=== PATIENT | female | born 1975 | race Caucasian/White ===

== ENCOUNTER 2019-05-16 11:33 | Inpatient (IN) ==
[2019-05-16] MEDS ORDERED: PHENERGAN WITH CODEINE LIQUID PO PRN (12:58)
[2019-05-16 13:59] LABS: HEMATOCRIT 43.9 % (37.0-47.0); HEMOGLOBIN 13.8 g/dL (12.0-16.0); MCH 28.2 PG (27-31); MCHC 31.4 g/dL (33-37); MCV 89.6 FL (81-99); MPV 9.9 FL (7.4-10.4); RBC 4.9 XMIL (4.2-5.4); RDW 13.4 % (11.5-14.5); WBC 16.31 X1000 (4.8-10.8)
[2019-05-16 14:37] LABS: ALB/GLOB RATIO 0.9; ALBUMIN 3.4 g/dL (3.5-5.0); POTASSIUM 3.4 mmol/L (3.5-5.1); TOTAL BILIRUBIN 0.16 mg/dL (0.20-1.00)
[2019-05-16] MEDS: DUONEB (A & A) INH SCH ×2 (15:36→22:26)
[2019-05-16] MEDS: LEVAQUIN 750 MG/D5W 750 MG/150 ML IVPB IV SCH (15:58)
[2019-05-16] MEDS: SOLU-MEDROL IV SCH ×2 (15:58→23:46)
[2019-05-17] MEDS: DUONEB (A & A) INH SCH ×4 (03:54→22:23)
--- NOTE | 2019-05-17 07:23 | EKG Report ---
Test Performed on : 05/17/2019 06:48:53 AM Test Reason : PNEUMONIA Blood Pressure : / mmHG Vent. Rate : 082 BPM Atrial Rate : 082 BPM P-R Int : 116 ms QRS Dur : 092 ms QT Int : 384 ms P-R-T Axes : 046 006 017 degrees QTc Int : 448 ms Normal sinus rhythm. Normal ECG When compared with ECG of 04-MAY-2019 04:52, (Unconfirmed) No significant change was found Confirmed by Jose Potter MD ([id number]) on 05/17/2019 8:11:01 PM
--- NOTE | 2019-05-17 07:43 | Diag Imaging Result Doc PS360 ---
EXAM: CHEST-1 VIEW INDICATION: PNEUMONIA TECHNIQUE: One view COMPARISON: 05/04/2019 FINDINGS: There is a platelike opacity at the left lower lung zone that probably represents atelectasis. It is more dense than the previous study. The right lung is clear. Cardiac silhouette is stable. IMPRESSION: Increase in density of a platelike opacity at the left lung base that probably represents atelectasis. Electronically signed by Delonte Stahl 05/17/2019 7:40 AM
[2019-05-17] MEDS: SOLU-MEDROL IV SCH ×2 (08:39→13:58)
--- NOTE | 2019-05-17 09:20 | PROGRESS NOTE ---
DATE: 05/17/2019 SUBJECTIVE: Ms. Baxter is admitted with non-improving pneumonia on the left side. She has subsegmental atelectasis. Her white count is 16.31. She has been a heavy smoker. Potassium is 3.4. We will use her supplemental potassium. She has been on IV Levaquin as well as steroid therapy. She is also getting the nebulizer treatment. She is feeling somewhat better this morning. -6 cc: Jignesh Cole MD
--- NOTE | 2019-05-17 09:26 | HISTORY AND PHYSICAL ---
HISTORY OF PRESENT ILLNESS: Ms. Baxter, who is a 44-year-old white female, comes to the office with persistent shortness of breath, cough, and low-grade fever. She was seen earlier at [facility] [place] and was told that she had pneumonia bilaterally with some atelectasis on the left side. She had some pulmonary congestion on both sides and it has been decided to admit her to the hospital as she was not improving. She is a nurse by profession. She has been a chronic smoker since early teenage. Does not drink. ALLERGIES: She is allergic to latex. PAST MEDICAL HISTORY: She has past history of one C section and hysterectomy. She is obese. Earlier, there was about 6 months to a year ago, she was trying to get approved for gastric bypass surgery, however, it did not work out with her insurance. She has problems with hypertension. REVIEW OF SYSTEMS: Other than low-grade fever, she has cough with expectoration, Other details are noncontributory. She has not been exposed to anyone who is out of the country. She has not gone out of [place]. PHYSICAL EXAMINATION: GENERAL: The patient is alert and oriented. VITAL SIGNS: Reveal temperature normal, pulse is 91 per minute, respiratory rate 19 per minute, blood pressure was 107/64. HEENT: Head normocephalic. PERRLA. Fundus examination normal. ENT examination unremarkable. NECK: Supple. JVP normal. There is no evidence of lymphadenopathy, thyroid enlargement. EXTREMITIES: No pedal edema, calf tenderness, any cyanosis or cyanosis or clubbing. Pedal pulses well felt. BREASTS: Not done. CHEST: Normal inspection. LUNGS: Clear on auscultation. PMI in the normal position. Her lungs reveals some basal rales at both bases. No wheezing audible at present time. HEART: Heart sounds normal. No murmur, gallop or rub noted. ABDOMEN: Obese. Hernial orifices normal. No guarding, rigidity, free fluid, masses, or organomegaly. Bowel sounds normal. RECTAL: Deferred. PHOTOENGRAVING ETCHER: Higher functions normal. Cranial nerves normal. Motor and sensory system examination unremarkable. Deep tendon reflexes normal. Plantars downgoing. Skull and spine examination normal. No cerebellar signs of meningeal irritation, local motor exam. SKIN: Unremarkable. CLINICAL IMPRESSION: 1. Pneumonia, especially on the left side. 2. History of smoking. 3. Hypertension. 4. Obesity. PLAN: Start IV antibiotics and respiratory therapy as well as some steroid therapy. cc: Jignesh Cole MD MTDD
[2019-05-17] MEDS: SINGULAIR PO SCH (09:52)
[2019-05-17] MEDS: HYDROCHLOROTHIAZIDE PO SCH (09:52)
[2019-05-17] MEDS: COZAAR PO SCH (09:53)
[2019-05-17] MEDS: BREO ELLIPTA 100/25 MCG INH INH SCH (10:03)
[2019-05-17] MEDS: LEVAQUIN 750 MG/D5W 750 MG/150 ML IVPB IV SCH (13:58)
[2019-05-17] MEDS: KLOR-CON PO SCH (20:18)
[2019-05-18] MEDS: SOLU-MEDROL IV SCH ×2 (01:24→15:48)
[2019-05-18] MEDS: DUONEB (A & A) INH SCH ×2 (03:28→20:06)
--- NOTE | 2019-05-18 09:16 | PROGRESS NOTE ---
DATE: 05/18/2019 Ms. Baxter is feeling better. Laryngitis is significantly improved. The voice is back to normal. She has minimal congestion on the left base. She has atelectasis. She has been treated with IV Levaquin. If the x-ray is better tomorrow, I may discharge her. However, she wants the coronavirus test done and she has pneumonia and history of respiratory illness. I personally feel like it is in order. If it is not done ,she would be quarrantined for 14 days, which she does not like and she wants to know. We will order it today. cc: Jignesh Cole MD MTDD
[2019-05-18] MEDS: SINGULAIR PO SCH (12:01)
[2019-05-18] MEDS: HYDROCHLOROTHIAZIDE PO SCH (12:01)
[2019-05-18] MEDS: KLOR-CON PO SCH (12:01)
[2019-05-18] MEDS: COZAAR PO SCH (12:01)
[2019-05-18] MEDS: LEVAQUIN 750 MG/D5W 750 MG/150 ML IVPB IV SCH (15:48)
[2019-05-18] MEDS ORDERED: COMBIVENT RESPIMAT INHALER ONE (16:43)
[2019-05-18] MEDS: COMBIVENT RESPIMAT INHALER INH SCH ×2 (16:51→22:00)
[2019-05-18] MEDS: BREO ELLIPTA 100/25 MCG INH INH SCH (16:51)
[2019-05-19] MEDS: COMBIVENT RESPIMAT INHALER INH SCH ×3 (04:05→22:00)
[2019-05-19] MEDS: SOLU-MEDROL IV SCH ×2 (04:53→16:25)
[2019-05-19] MEDS: KLOR-CON PO SCH ×3 (07:04→21:50)
--- NOTE | 2019-05-19 11:27 | Diag Imaging Result Doc PS360 ---
CHEST-PORTABLE - 05/19/2019 INDICATION: PNA COMPARISON: 05/17/2019 FINDINGS: There has been resolution of the small focal airspace infiltrate in the lateral left lung base. This may have been atelectasis. IMPRESSION: Negative exam. Electronically signed by Arnaud Malave 05/19/2019 11:25 AM
[2019-05-19] MEDS: SINGULAIR PO SCH (11:32)
[2019-05-19] MEDS: COZAAR PO SCH ×3 (11:33→16:26)
[2019-05-19] MEDS: HYDROCHLOROTHIAZIDE PO SCH ×3 (11:33→16:25)
[2019-05-19] MEDS: BREO ELLIPTA 100/25 MCG INH INH SCH (11:36)
--- NOTE | 2019-05-19 15:26 | PROGRESS NOTE ---
DATE: 05/19/2019 Her vital signs are stable. EKG was unremarkable. We are going to repeat the chest x-ray. We will do a CBC on her in the morning. Overall condition is unchanged. COVID-19 test was done yesterday. -2 cc: Jignesh Cole MD
[2019-05-19] MEDS: DIFLUCAN PO SCH (16:25)
[2019-05-19] MEDS: LEVAQUIN 750 MG/D5W 750 MG/150 ML IVPB IV SCH (16:25)
[2019-05-20] MEDS: COMBIVENT RESPIMAT INHALER INH SCH ×2 (04:00→09:08)
[2019-05-20] MEDS: SOLU-MEDROL IV SCH (04:11)
[2019-05-20 05:23] LABS: BASO# 0.02 X1000 (0.0-0.2); BASO% 0.1 % (0.0-0.8); HEMATOCRIT 44.8 % (37.0-47.0); HEMOGLOBIN 14.2 g/dL (12.0-16.0); IMM GRAN# 0.25 X1000 (0.0-0.04); IMM GRAN% 1.4 % (0.0-0.5); LYMPH% 17.8 % (20.5-51.1); MCHC 31.7 g/dL (33-37); MCV 88.2 FL (81-99); MONO# 1.16 X1000 (0.11-0.59); MONO% 6.4 % (1.7-9.3); MPV 9.9 FL (7.4-10.4); NEUT# 13.37 X1000 (1.4-6.5); NEUT% 74.3 % (42.2-75.2); PLT 348 X1000 (130-400); RBC 5.08 XMIL (4.2-5.4); RDW 13.9 % (11.5-14.5)
[2019-05-20 08:06] VITALS: BP 117/76
[2019-05-20] MEDS: BREO ELLIPTA 100/25 MCG INH INH SCH (09:08)
[2019-05-20] MEDS: KLOR-CON PO SCH (10:30)
--- NOTE | 2019-05-20 11:18 | PROGRESS NOTE ---
DATE: 05/20/2019 SUBJECTIVE: Ms Baxter is doing better. Pneumonia has cleared up. OBJECTIVE: She continues to have leukocytosis as noted on CBC. She is on Diflucan. She wants to be discharged today. PLAN: We will discharge her with the condition that she has to quarantine herself at home until we get the negative result of her COVID-19. She is in agreement with this, and we will discharge her today. I will call [facility] pharmacy for her medications. -5 cc: Jignesh Cole MD
[2019-05-20] MEDS: COZAAR PO SCH (11:58)
[2019-05-20] MEDS: HYDROCHLOROTHIAZIDE PO SCH (11:59)
[2019-05-20] MEDS: SINGULAIR PO SCH (12:00)
[2019-05-20] MEDS: DIFLUCAN PO SCH (12:00)
--- NOTE | 2019-05-20 12:17 | DISCHARGE SUMMARY ---
ADMISSION DATE: 05/16/2019 DISCHARGE DATE: 05/20/2019 HISTORY: Ms. Baxter who is a 44-year-old white female was admitted with pneumonia. Chest x-ray showed pneumonia with atelectasis on the left side. Repeat chest x-ray shows clearing up of the pneumonia. EKG revealed normal sinus rhythm and normal axis deviation. LABORATORY DATA: CBC revealed white count of 16.31. Repeat CBC showed 18.00. Hemoglobin was normal. Electrolytes revealed mild hypokalemia, potassium 3.4, AST, and ALT were slightly elevated. The AST was 59, ALT was 103. Glucose was 131, creatinine was 0.1. COURSE IN HOSPITAL: She was given IV Levaquin. Hence, IV steroids were given, which may have made the glucose come up. She continued to do better. Hence, and the x-rays cleared up. We did a COVID 19 test on her which has come back negative. She is discharged today. However, she is advised to quarantine at home until she gets a negative report on COVID 19, and she is in agreement with that. We have called the [facility] pharmacy for prescriptions of Levaquin, Diflucan, potassium chloride, and DuoNeb inhaler. FINAL DIAGNOSIS: Pneumonia. cc: Jignesh Cole MD
== END 2019-05-20 12:07 | disposition home or self-care (01) | DRG 194 ==
LOC: DIRADM 11:33 → 4N 12:26
PROVIDERS: ADMIT Internal Medicine; ATTEND Internal Medicine